=== PATIENT | male | born 1990 ===

== ENCOUNTER 2019-07-15 19:43 | Emergency (ER) | payer OTHER ==
[~2019-07-15] VITALS: Ht 188 cm; Wt 122.9 kg
[2019-07-15] MEDS ORDERED: METHOCARBAMOL500 MG (19:47)
[2019-07-16] MEDS ORDERED: KETO10TA2 PO (02:15)
[2019-07-16] MEDS ORDERED: LEVSIN/SL0.125 MG SL (02:15)
[2019-07-16] MEDS ORDERED: PEPCID AC20 MG PO (02:15)
== END 2019-07-16 02:37 | disposition home or self-care (01) ==
LOC: ER 19:43
DX: K29.70 Gastritis, unspecified, without bleeding (principal); R10.11 Right upper quadrant pain